=== PATIENT | male | born 1935 | race Caucasian/White ===

== ENCOUNTER 2018-12-15 18:37 | Inpatient (IN) | payer OTHER ==
--- NOTE | 2018-12-15 18:47 | EDPHY ---
H & P Time Seen by Provider: 12/15/18 18:43 HPI/ROS: HPI Stroke alert. 83-year-old male by ambulance, stroke alert, he is with his daughter. Has a prior history of a CVA when he was 67. Residual right upper extremity weakness from this. At approximately 3:30 p.m. His daughter when out to the movies. She came back at approximately 6:00 p.m. And found him slumped to his right side on the couch for usually sets and not responding to verbal stimulus. His eyes were open but he was not responding to questions. His daughter tells me that this is unusual. His daughter also noticed that his right face seemed to be drooping more than usual. He currently is on Coumadin. I can't get any other history from this patient because he is not responsive to questioning. IV was established by EMS. ROS: Unable to obtain. Past medical history: CVA as above. Social history: Lives at home in the [place] [facility] with daughter and son-in-law. Daughter is present. Nonsmoker. He is ambulatory normally. Physical Exam: General Appearance: Alert, eyes open. Patient not responding to verbal command. This patient appears well-hydrated and well-nourished. Eyes: Pupils equal and round no pallor or injection. No lid edema, erythema or injection. ENT, Mouth: Mucous membranes are moist. The pharyngeal tissues are unremarkable. No edema or swelling. No asymmetry suggestive of abscess. No erythema or exudates. Respiratory: There are no retractions, lungs are clear to auscultation with good air movement bilaterally. Cardiovascular: Regular rate and rhythm. No murmur. Gastrointestinal: Abdomen is soft and nontender, no masses, bowel sounds normal. No focal tenderness at McBurney's point. No Sanchez sign. Neurological: Alert. Motor function and sensory function appear intact in the bilateral lower extremities in the left upper extremities. I do not appreciate a facial droop. The patient does not respond to verbal commands. He does stare at you and he tracks. He will not nod yes or no to your questions. Skin: Warm and dry, no rashes. Musculoskeletal: Neck is supple and nontender. Extremities are symmetrical. All joints range without pain or impingement. Psychiatric: No agitation. No depression. Database: EKG: EKG time is 7:13 p.m.; EKG shows a narrow complex atrial fibrillation with ventricular rate average of 116. The QRS, QT intervals are within normal limits. There are no ST-T wave changes indicative of ischemic or injury pattern. No evidence of right heart strain. Interpreted by me. Imaging: CT head without contrast: Large prior infarcts. No blood. Results were discussed with staff radiologist Dr. Juan Cardenas. CT angiogram of head neck: Moderate calcification of the bilateral carotids but nothing acute on CT angiogram of the head and neck. Results were discussed with staff radiologist Dr. Juan Cardenas. Procedures: Emergency department course: Triage vital signs reviewed. After initial assessment in the doorway at 6:35 p.m., the patient was sent for CT imaging. 7:00 p.m. the patient is back in his room. EKG obtained and reviewed by myself. He is in atrial fibrillation with rapid ventricular response in the 120s to 130s. He is hypertensive with a blood pressure currently 189/118. He will be given diltiazem slow push for rate control followed by a steady state drip as needed. 7:15 p.m., I spoke with his daughter and son-in-law. According to the daughter the patient does respond by saying yes or no to verbal questions. He does not do this consistently and will sometimes nod his head yes or no but he will respond. She states that his inability to respond is unusual for him. She confirms right upper extremity deficit from previous CVA at the age of 67. 7:30 p.m., I discussed case with on-call hospitalist Dr. Landon Gonzalez. The case was discussed in detail with her. This patient is not a tPA candidate secondary to him being on Coumadin. [facility] will not be involved at this time. I discussed the results of his imaging with her. I explained that we are currently treating him for atrial fibrillation with rapid ventricular response which is new. We will admit this patient under her care to the step- down unit. 7:40 p.m., after 25 mg of slow push IV diltiazem, ventricular rate is currently in the 80s. Blood pressure is 149/94. The patient appears to still be in atrial fibrillation. EKG will be repeated. He will be started on IV normal saline with 500 cc to be given over the next hour. Diltiazem drip will be at the bedside to be used as needed. I am currently concerned about his blood pressure being lowered much more than it is. This medication will therefore be held for the time being. 8:10 p.m., Cline catheter will be placed. Urinalysis has been ordered. Results of this will be followed up by the hospitalist service. Blood pressure 168/108 at this time. campus monitor shows a narrow complex atrial fibrillation with ventricular rate of 92. I feel he is stable at this time for transfer to the step-down unit. There has been no change in his neurologic status. 8:50 p.m., the patient was re-evaluated, resting comfortably at this time. His mental status has dramatically improved. He is now much more alert. He is responding to questions with yes or no answers and nodding his head. Repeat neurologic exam is otherwise unchanged. The daughter is at the the bedside. The daughter tells me that he is currently at his baseline mental status. campus monitor still shows atrial fibrillation. His rate is starting to creep back up is currently at 100-105. He will be placed on a low-dose diltiazem steady state drip. His blood pressure is also increasing with a blood pressure currently is 178/102. Diltiazem will be titrated to a ventricular rate consistently under 100 and a blood pressure with systolic 150-160. Differential Diagnosis: The differential diagnosis on this patient includes but is not limited to CVA, urinary tract infection, atrial fibrillation new onset with rapid ventricular response. This represents a partial list of diagnoses considered. These considerations are based on history, physical exam, past history, reassessment and diagnostic testing. Constitutional: Initial Vital Signs Temperature (C) 36.5 C 12/15/18 18:37 Heart Rate 118 H 12/15/18 18:37 Respiratory Rate 24 H 12/15/18 18:37 Blood Pressure 179/133 H 12/15/18 18:37 O2 Sat (%) 90 L 12/15/18 18:37 O2 Delivery Mode Oxymizer O2 (L/minute) 2 Allergies/Adverse Reactions: No Known Allergies Allergy (Unverified 12/15/18 19:41) Home Medications: Medication Instructions Recorded Atorvastatin Calcium [Lipitor 40 40 mg PO DAILY 12/15/18 mg (*)] Warfarin Sodium [Coumadin 2.5MG 1.25 mg PO TUTHSA@0800 12/15/18 (*)] Warfarin Sodium [Coumadin 2.5MG 2.5 mg PO SUMOWEFR@0800 12/15/18 (*)] levETIRAcetam [Levetiracetam] 250 mg PO DAILY 12/15/18 levETIRAcetam [Levetiracetam] 500 mg PO HS 12/15/18 Medical Decision Making - Data Points Laboratory Results: Laboratory Results 12/15/18 18:40 12/15/18 18:40 Medications Given: Aspirin (Aspirin) 325 mg PO DAILY DEVAN Stop: 06/14/19 14:14 Last Admin: 12/16/18 14:03 Dose: 325 mg Atorvastatin Calcium (Lipitor) 40 mg PO DAILY DEVAN Stop: 06/14/19 08:59 Last Admin: 12/16/18 14:03 Dose: 40 mg Sodium Chloride (Ns) 1,000 mls @ 150 mls/hr IV CONT DEVAN Stop: 06/13/19 19:44 Last Admin: 12/15/18 22:23 Dose: 1,000 mls Diltiazem/Dextrose (Diltiazem 125mg/125ml (Premix)) 125 mls @ 0 mls/hr IV CONT DEVAN; Per Protocol PRN Reason: Protocol Stop: 06/13/19 22:29 Last Admin: 12/15/18 22:44 Dose: 125 mls Ceftriaxone Sodium/Dextrose (Rocephin 1 Gm (Premix)) 50 mls @ 100 mls/hr IV Q24H DEVAN PRN Reason: Protocol Stop: 01/14/19 22:29 Last Admin: 12/15/18 22:51 Dose: 50 mls Levetiracetam (Keppra) 250 mg PO DAILY DEVAN Stop: 06/14/19 08:59 Last Admin: 12/16/18 14:03 Dose: 250 mg Discontinued Medications Aspirin (Aspirin Rectal) 300 mg ID DAILY DEVAN Stop: 06/14/19 08:59 Last Admin: 12/16/18 15:13 Dose: Not Given Diltiazem HCl (Cardizem 25 Mg/5 Ml Vial) 25 mg IVP EDNOW ONE Stop: 12/15/18 19:23 Last Admin: 12/15/18 19:25 Dose: 25 mg Sodium Chloride (Ns) 500 mls @ 1,000 mls/hr IV EDNOW ONE PRN Reason: Protocol Stop: 12/15/18 20:11 Last Admin: 12/15/18 19:57 Dose: 500 mls Diltiazem/Dextrose (Diltiazem 125mg/125ml (Premix)) 125 mls @ 0 mls/hr IV EDNOW ONE; As Directed PRN Reason: Protocol Stop: 12/15/18 20:48 Last Admin: 12/15/18 20:59 Dose: 125 mls Point of Care Test Results: Chemistry 12/15/18 12/15/18 18:52 18:42 POC Sodium 144 mEq/L mEq/L (135-145) POC Potassium 3.6 mEq/L mEq/L (3.3-5.0) POC Chloride 112 mEq/L H mEq/L (97-110) POC Total CO2 12 mEq/L L mEq/L (22-31) POC BUN 15 mg/dL mg/dL (7-23) POC Creatinine 1.4 mg/dL H mg/dL (0.7-1.3) POC Glucose 133 mg/dL H mg/dL (70-100) POC Troponin I 0.01 ng/mL ng/mL (0.00-0.08) ISTAT H&H 12/15/18 18:42 POC Hgb 16.3 gm/dL gm/dL (13.7-17.5) POC Hct 48 % % (40-51) Departure - Departure Disposition: [facility] Inpatient Acute Clinical Impression: Acute ischemic stroke, Altered mental status, Atrial fibrillation with RVR
[2018-12-15 18:55] LABS: PLATELET COUNT 118 10^3/uL (150-400)
[2018-12-15] MEDS ORDERED: IOPAMIDOL (ISOVUE-370) 150 ML BTL IV ONE (18:55)
[2018-12-15 19:07] LABS: INR 1.74 (0.83-1.16); PROTIME(PATIENT) 19.5 SEC (12.0-15.0)
[2018-12-15] MEDS ORDERED: DILTIAZEM 25 MG/5 ML VIAL IVP ONE ×2 (19:15→19:22)
[2018-12-15] MEDS ORDERED: NS 500 ML IV ONE (19:42)
[2018-12-15] MEDS ORDERED: HYDROmorphONE/DILAUDID 1 MG/ML INJ IVP PRN (19:44)
[2018-12-15] MEDS ORDERED: ACETAMINOPHEN 650 MG SUPP PR PRN (19:44)
[2018-12-15] MEDS ORDERED: ONDANSETRON 4 MG/2 ML VIAL IVP PRN (19:44)
[2018-12-15] MEDS ORDERED: ACETAMINOPHEN 325 MG TAB PO PRN (19:44)
[2018-12-15] MEDS ORDERED: PROMETHAZINE HCL 25 MG/ML INJ IVP PRN (19:44)
[2018-12-15] MEDS ORDERED: ONDANSETRON DISINTEGRATING 4 MG TAB PO PRN (19:44)
[2018-12-15] MEDS ORDERED: NS 1,000 ML IV SCH (19:45)
[2018-12-15] MEDS ORDERED: LIDOCAINE 2% JELLY 20 ML (UROJECT) ONE (20:11)
[2018-12-15] MEDS ORDERED: DILTIAZEM HCL/D5W 125 ML IV ONE (20:47)
--- NOTE | 2018-12-15 21:59 | PDGENHP ---
History and Physical - Chief Complaint unresponsive - History of Present Illness 83 yo M with PMH of CVA with resultant right sided deficits presenting from home with concerns of decreased responsiveness today. Patient resides with his daughter who notes that she last saw him normal this afternoon, she went out for a couple of hours or so and when she returned home he was noted to be on the couch, slumped over and unable to respond to questions. She was able to relay to the ER doctor that he is normally interactive and able to support himself upright on the couch. She also thought that there was a right sided facial droop evident when she saw him. At the time of my evaluation daughter is not available and patient is unable to answer questions or speak at all--he is following commands and grunting on occasion. The majority of this history is therefore obtained by chart review and in discussion with ER doctor. History Information - Allergies/Home Medication List Allergies/Adverse Reactions: No Known Allergies Allergy (Unverified 12/15/18 19:41) Home Medications: Atorvastatin Calcium [Lipitor 40 mg (*)] 40 mg PO DAILY 12/15/18 [Last Taken ] Warfarin Sodium [Coumadin 2.5MG (*)] 1.25 mg PO TUTHSA@0800 12/15/18 [Last Taken 12/14/18] Warfarin Sodium [Coumadin 2.5MG (*)] 2.5 mg PO SUMOWEFR@0800 12/15/18 [Last Taken 12/15/18] levETIRAcetam [Levetiracetam] 250 mg PO DAILY 12/15/18 [Last Taken 12/15/18] levETIRAcetam [Levetiracetam] 500 mg PO HS 12/15/18 [Last Taken 12/14/18] I have personally reviewed and updated: family history, medical history, social history, surgical history - Past Medical History CVA, hyperlipidemia, seizures - Surgical History Additional surgical history: unobtainable - Family History Additional family history: unobtainable - Social History Additional social history: unobtainable due to patients mental status Review of Systems Review of Systems: unobtainable 2/2 patients mental status Physical Exam Physical Exam: Temp Pulse Resp BP Pulse Ox 36.6 C 93 22 H 161/111 H 93 12/15/18 20:36 12/15/18 20:36 12/15/18 20:36 12/15/18 20:36 12/15/18 20:36 O2 (L/minute) 2 Constitutional: not in pain, chronically ill appearing Eyes: PERRL, anicteric sclera Ears, Nose, Mouth, Throat: moist mucous membranes, poor dentition Cardiovascular: irregularly irregular, tachycardia, edema Respiratory: reduced air movement, inspiratory crackles Gastrointestinal: normoactive bowel sounds, soft, non-tender abdomen Genitourinary: no bladder tenderness Skin: warm, normal color Musculoskeletal: no muscle tenderness, No asymmetric calves Neurologic: weakness (right sided upper and lower extremity weakness ), CN II- XII Intact, No AAOx3 Psychiatric: encephalopathic, other (unable to interact verbally, able to follow commands) Lab Data & Imaging Review 12/15/18 18:40 12/15/18 18:40 WBC 7.86 10^3/uL (3.80-9.50) 12/15/18 18:40 RBC 5.17 10^6/uL (4.40-6.38) 12/15/18 18:40 Hgb 16.0 g/dL (13.7-17.5) 12/15/18 18:40 POC Hgb 16.3 gm/dL (13.7-17.5) 12/15/18 18:42 Hct 48.2 % (40.0-51.0) 12/15/18 18:40 POC Hct 48 % (40-51) 12/15/18 18:42 MCV 93.2 fL (81.5-99.8) 12/15/18 18:40 MCH 30.9 pg (27.9-34.1) 12/15/18 18:40 MCHC 33.2 g/dL (32.4-36.7) 12/15/18 18:40 RDW 13.7 % (11.5-15.2) 12/15/18 18:40 Plt Count 118 10^3/uL (150-400) L 12/15/18 18:40 MPV 11.1 fL (8.7-11.7) 12/15/18 18:40 Neut % (Auto) 60.8 % (39.3-74.2) 12/15/18 18:40 Lymph % (Auto) 25.8 % (15.0-45.0) 12/15/18 18:40 [place] % (Auto) 10.1 % (4.5-13.0) 12/15/18 18:40 Eos % (Auto) 2.4 % (0.6-7.6) 12/15/18 18:40 Baso % (Auto) 0.6 % (0.3-1.7) 12/15/18 18:40 Nucleat RBC Rel Count 0.0 % (0.0-0.2) 12/15/18 18:40 Absolute Neuts (auto) 4.78 10^3/uL (1.70-6.50) 12/15/18 18:40 Absolute Lymphs (auto) 2.03 10^3/uL (1.00-3.00) 12/15/18 18:40 Absolute Monos (auto) 0.79 10^3/uL (0.30-0.80) 12/15/18 18:40 Absolute Eos (auto) 0.19 10^3/uL (0.03-0.40) 12/15/18 18:40 Absolute Basos (auto) 0.05 10^3/uL (0.02-0.10) 12/15/18 18:40 Absolute Nucleated RBC 0.00 10^3/uL (0-0.01) 12/15/18 18:40 Immature Gran % 0.3 % (0.0-1.1) 12/15/18 18:40 Immature Gran # 0.02 10^3/uL (0.00-0.10) 12/15/18 18:40 PT 19.5 SEC (12.0-15.0) H 12/15/18 18:40 INR 1.74 (0.83-1.16) H 12/15/18 18:40 POC Sodium 144 mEq/L (135-145) 12/15/18 18:42 Sodium 141 mEq/L (135-145) 12/15/18 18:40 POC Potassium 3.6 mEq/L (3.3-5.0) 12/15/18 18:42 Potassium 3.8 mEq/L (3.5-5.2) 12/15/18 18:40 POC Chloride 112 mEq/L (97-110) H 12/15/18 18:42 Chloride 111 mEq/L (97-110) H 12/15/18 18:40 Carbon Dioxide 11 mEq/l (22-31) L 12/15/18 18:40 POC Total CO2 12 mEq/L (22-31) L 12/15/18 18:42 Anion Gap 19 mEq/L (6-14) H 12/15/18 18:40 POC BUN 15 mg/dL (7-23) 12/15/18 18:42 BUN 15 mg/dL (7-23) 12/15/18 18:40 Creatinine 1.5 mg/dL (0.7-1.3) H 12/15/18 18:40 POC Creatinine 1.4 mg/dL (0.7-1.3) H 12/15/18 18:42 Estimated GFR 45 12/15/18 18:40 Glucose 134 mg/dL (70-100) H 12/15/18 18:40 POC Glucose 133 mg/dL (70-100) H 12/15/18 18:42 Calcium 8.7 mg/dL (8.5-10.4) 12/15/18 18:40 POC Troponin I 0.01 ng/mL (0.00-0.08) 12/15/18 18:52 Urine Color YELLOW 12/15/18 20:30 Urine Appearance CLEAR 12/15/18 20:30 Urine pH 6.0 (5.0-7.5) 12/15/18 20:30 Ur Specific [place] 1.025 (1.002-1.030) 12/15/18 20:30 Urine Protein NEGATIVE (NEGATIVE) 12/15/18 20:30 Urine Ketones NEGATIVE (NEGATIVE) 12/15/18 20:30 Urine Blood 1+ (NEGATIVE) H 12/15/18 20:30 Urine Nitrate NEGATIVE (NEGATIVE) 12/15/18 20:30 Urine Bilirubin NEGATIVE (NEGATIVE) 12/15/18 20:30 Urine Urobilinogen NEGATIVE EU (0.2-1.0) 12/15/18 20:30 Ur Leukocyte Esterase 1+ (NEGATIVE) H 12/15/18 20:30 Urine RBC 3-5 /hpf (0-3) H 12/15/18 20:30 Urine WBC 15-25 /hpf (0-3) H 12/15/18 20:30 Ur Epithelial Cells NONE SEEN /lpf (NONE-1+) 12/15/18 20:30 Urine Bacteria TRACE /hpf (NONE SEEN) H 12/15/18 20:30 Urine Mucus TRACE /lpf (NONE-1+) 12/15/18 20:30 Urine Glucose NEGATIVE (NEGATIVE) 12/15/18 20:30 Visualized and Interpreted imaging results: Yes Interpretation: head CT: nothing acute, old bilateral occipital, bilateral parietal and left sided temporal ischemic areas. head/neck CTA: nothing acute Visualized and Interpreted EKG results: Yes EKG additional interpertation: afib, LAD Assessment & Plan Assessment: Acute ischemic stroke (Acute) Altered mental status (Acute) Atrial fibrillation with RVR (Acute) 83 yo M with hx of CVA and residual right sided weakness presenting with AMS suspicious for recurrent CVA # metabolic encephalopathy: at baseline patient able to interact verbally with an abrupt change in his mental status occurring this afternoon, concerning for acute CVA but unmasking of prior stroke sxs also possible. W/u for infection, treatment of a fib, and w/u of CVA as below. Does have UA possibly c/w infection. # CVA: as above with new significant change in MS concerning for recurrent stroke, old deficits still evident and new deficits of aphasia and ? of right facial droop no longer evident on exam. Jesse nunez has evaluated, patient not candidate for TPA given that he is on warfarin chronically, no significant stenoses on CTA and no bleed on head CT. Neuro to see in am, brain MRI and echo in am. # a fib w/rvr: apparently this is a new dx for him and he was on warfarin previously for CVA rather than a fib, will continue dilt gtt started in ER, will continue warfarin which was subtherapeutic on arrival # pyuria: in the setting of acute change in MS this could represent unmasking of prior cva sxs due to acute infection, cultures pending, ctx started for now # seizure d/o: presumably due to prior CVA but no old records currently available (not found on [employer] or [employer]), will continue keppra, will request records # HTN: allowing for permissive htn as able, on dilt gtt will shoot for sbp 150- 160 # IP status, patient with multiple active high risk conditions requiring SDU level care and monitoring, in addition to time for admission H&P > 35 min critical care time spent in evaluation of imaging/labs and coordination of care with ER doctor and consultants Patient new to my care. Care plan reviewed with ER doctor.
[2018-12-15] MEDS ORDERED: DILTIAZEM HCL/D5W 125 ML IV SCH (22:30)
[2018-12-15] MEDS ORDERED: ENOXAPARIN 80 MG/0.8 ML SYR SC SCH (22:30)
[2018-12-16 05:12] LABS: PLATELET COUNT 105 10^3/uL (150-400)
[2018-12-16 05:16] LABS: INR 1.87 (0.83-1.16); PROTIME(PATIENT) 20.6 SEC (12.0-15.0)
[2018-12-16] MEDS ORDERED: ASPIRIN RECTAL 300 MG SUPP PR SCH (09:00)
--- NOTE | 2018-12-16 10:54 | PDMN ---
Medical Necessity Medical necessity: Pt meets IP criteria as of 12/15/2018 per and MCG MG-N ( Neurology GRG) and M-505 (Afib); est los > 2 mn for ongoing tx and management of acute metabolic encephalopathy with unresponsiveness as well as new onset afib RVR and acute pyuria; requiring diltiazem gtt, IV ABX, cardiac monitoring, further workup, and neurology consultation; Hx CVA, HTN, and seizure disorder
--- NOTE | 2018-12-16 11:09 | ASMTCMCOM ---
CM Note CM Note Notes: Patient admitted w AMS and ?CVA after found him unresponsive. He has a hx of CVA. He lives with his daughter Marisol and her family. 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 Case Management will follow for d/c planning. Date Signed: 12/16/2018 11:09 AM Electronically Signed By:Manju Dennis RN
--- NOTE | 2018-12-16 11:45 | ECHO ---
[email or web address] [address] Main: [phone] Echocardiography Examination Transthoracic Name: CHARLES STAUFFER MR#: [id number] Study Date: 12/16/2018 Study Time: 08:41 AM Date of : 1935 Age: 83 year(s) Height: 182.9 cm (72 in.) Weight: 82.55 kg (182 lb.) BSA: 2.05 m2 Gender: Male Examination: Echo Contrast: Image Quality: Technically Difficult Rhythm: Atrial fibrillation Heart Rate: BP: 120 mmHg/70 mmHg Indication: ?ischemic stroke Procedure Staff Referring Physician: Early Childhood Teacher Assistant: Tati Baker [facility] Reading Physician: Tony Lindsay MD Requesting Provider: Indication: ?ischemic stroke Measurements Chambers AV/MV Label Value Normal Value Label Value Normal Value EF lower range (%) 55 % AV PGmax 6 mmHg EF upper range (%) 60 % AV Vmax 1.24 m/s IVSd, 2D 1.3 cm (0.6cm - 1.1cm) CHAVO (continuity eq. 2.3 cm2 LVDd, 2D 4 cm (4.2cm - 5.9cm) Vmax) LVDs, 2D 2.7 cm (2.1cm - 4cm) MV DT 194 ms LVEF, 2D 62 % (54% - 74%) MV E Vmax 0.87 m/s LVEF, BP 59 % (55% - 70%) TV/PV LVOT PGmax 2 mmHg Label Value Normal Value LVOT Vmax 0.76 m/s (0.7m/s - 1.1m/s) RA Pressure 5 mmHg LVOTd 2.2 cm (1.9cm - 2.1cm) RVSP 31 mmHg LVPWd, 2D 0.9 cm (0.6cm - 1cm) TR Pmax 26 mmHg RVDd, 2D 4.6 cm (1.9cm - 3.8cm) TR Vmax 2.54 m/s TAPSE 2.3 cm PV PGmax 3 mmHg LA Volume, BP 136 ml (18ml - 58ml) PV Vmax, Caliper 0.82 m/s (0.6m/s - 0.9m/s) LADs, 2D 3.4 cm (3cm - 4cm) LAESV index, BP 66.3 ml/m2 RA Area 20.4 cm2 Additional Vessels Label Value Normal Value AoAsc 3.8 cm Patient: CHARLES STAUFFER Study Date: 12/16/2018 Page 1 of 3 08:41 AM AoRoot, 2D 4 cm (1.4cm - 2.6cm) Conclusions Left Ventricle: Left ventricle is normal in size. EF range is estimated at 55 % - 60 %. There is mild concentric left ventricular hypertrophy. Right Ventricle: Dilated right ventricle. Right ventricular systolic function is normal. Left Atrium: The left atrium is severely dilated. Right Atrium: The right atrium is mildly dilated. Tricuspid Valve: Pulmonary artery pressure normal. Aorta: Mild aortic root dilatation. The ascending aorta measures 3.8 cm. The ascending aorta is borderline dilated. Findings Left Ventricle: Left ventricle is normal in size. Normal global systolic left ventricular function. EF evaluated by EF (biplane Mcguire's). The ejection fraction, measured by Simpsons method, is 59 %. EF range is estimated at 55 % - 60 %. There is mild concentric left ventricular hypertrophy. There are no regional wall motion abnormalities. Unable to assess Diastolic Dysfunction due to atrial fibrillation/a flutter. There is a sigmoid shaped septum is present, which is a normal finding in the elderly. . Right Ventricle: Dilated right ventricle. Right ventricular wall thickness is normal. Right ventricular systolic function is normal. Left Atrium: The left atrium is severely dilated. Right Atrium: The right atrium is mildly dilated. Mitral Valve: Normal . Trivial mitral regurgitation. No mitral valve stenosis. There is mild mitral thickening. There is mild mitral annular calcification. Aortic Valve: The aortic valve is structurally normal and trileaflet. No aortic valve regurgitation. There is no aortic stenosis. Tricuspid Valve: Tricuspid valve leaflets are normal in appearance and function. Mild tricuspid regurgitation. No tricuspid valve stenosis. Right Ventricular systolic pressure is measured at 31 mmHg. Pulmonary artery pressure normal. Pulmonic Valve: Pulmonic leaflets exhibit normal cuspal separation. Trivial pulmonic valve regurgitation is present. There is no pulmonic valve stenosis. Aorta: Mild aortic root dilatation. The aortic root size in 2D measures 4.0 cm. The aortic root exhibits mild dilatation. The Patient: CHARLES STAUFFER Study Date: 12/16/2018 Page 2 of 3 08:41 AM ascending aorta measures 3.8 cm. The ascending aorta is borderline dilated. Aorta Measurements AoRoot, 2D is 4.0 cm. IVC: The inferior vena cava is normal in size and course. Pericardium: No pericardial effusion. Exam Details Procedure Ordered: Echo Procedure Status: Routine study Image Quality: Technically Difficult Facility Location: Cardiac Echo 1 (No Signature Object) Patient: CHARLES STAUFFER Study Date: 12/16/2018 Page 3 of 3 08:41 AM [id number]
--- NOTE | 2018-12-16 13:26 | HOSPPROG ---
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 case d/w dr becerra. d/w daughter at bedside Objective: Vital Signs Temp Pulse Resp BP Pulse Ox 36.6 C 65 13 144/77 H 95 12/16/18 04:00 12/16/18 11:52 12/16/18 11:52 12/16/18 11:52 12/16/18 11:52 Laboratory Results 12/16/18 04:56 12/16/18 04:56 12/15/18 12/16/18 12/17/18 05:59 05:59 05:59 Intake Total 1565.7 Output Total 1530 Balance 35.7 PT 20.6 SEC (12.0-15.0) H 12/16/18 04:56 INR 1.87 (0.83-1.16) H 12/16/18 04:56 - Physical Exam Constitutional: no apparent distress, appears nourished Eyes: PERRL, anicteric sclera Ears, Nose, Mouth, Throat: moist mucous membranes, hearing normal Cardiovascular: regular rate and rhythym, no murmur, rub, or gallop Respiratory: no respiratory distress, no rales or rhonchi Gastrointestinal: normoactive bowel sounds, soft, non-tender abdomen Genitourinary: no bladder fullness, No queen in urethra Skin: warm, normal color Musculoskeletal: full muscle strength Neurologic: No AAOx3 Psychiatric: No interacting appropriately ICD10 Worksheet Patient Problems: Problems Problem Status Onset Acute ischemic stroke Acute Altered mental status Acute Atrial fibrillation with RVR Acute
[2018-12-16] MEDS ORDERED: ASPIRIN 325 MG TAB ONE (14:01)
[2018-12-16] MEDS: levETIRAcetam 500 MG TAB PO SCH (14:03)
[2018-12-16] MEDS: ASPIRIN 325 MG TAB PO SCH (14:03)
[2018-12-16] MEDS: ATORVASTATIN CALCIUM 40 MG TAB PO SCH (14:03)
--- NOTE | 2018-12-16 15:03 | GCON ---
[f rep st] CONSULTATION CRITICAL CARE CONSULTATION DATE OF CONSULTATION: 12/16/2018 REASON FOR CONSULTATION: Altered mental status. HISTORY: The patient is a very pleasant 83-year-old gentleman with a history of previous strokes. He was found to have altered mental status and decreased level of consciousness, slumped over in his chair, and unable to respond to questions. She called 911. He was brought to the emergency department. He was unable to speak on arrival, but he was following some simple commands and trying to talk. He had a gaze preference to the right side. A new CVA was suspected. CT scan of the head in the emergency department showed changes consistent with previous infarctions bilaterally in the occipital, parietal, and left temporal areas. This was associated with encephalomalacia. A subsequent MRI showed these old strokes and no evidence of any acute stroke. Cardiac echo has also been done. This showed atrial fibrillation, normal left ventricular ejection fraction, and right ventricular systolic pressures of 31. The patient was admitted to the intensive care unit and supported overnight. Mental status has improved and he appears to be returning close to baseline per his daughter. The patient has been in atrial fibrillation. Apparently, this is chronic. He is on anticoagulation with warfarin. He also comes in on stroke prophylaxis with Keppra. He is Do Not Resuscitate per his and his family's wishes. PAST MEDICAL HISTORY: Somewhat unclear. The daughter does not know details regarding his medical history. He has atrial fibrillation and presumed seizures in the past, obviously CVAs. ALLERGIES: No known drug allergies. SOCIAL HISTORY: Negative tobacco and alcohol. The patient has been here living with his daughter for a year and a half. He is from [place] and was moved out here after his . He is fairly inactive at home, but generally can do some basic ADLs. FAMILY HISTORY: Noncontributory. REVIEW OF SYSTEMS: A 10-point review of systems is negative except as outlined above. PHYSICAL EXAMINATION: GENERAL: Reveals a pleasant gentleman who appears to be in good spirits. He is verbal, but answers very simply with yes or no or gives a thumbs up. VITAL SIGNS: Blood pressure is 144/77, heart rate 65 with atrial fibrillation on the monitor. He is on room air. Saturations are 95%. Respiratory rate is 16. HEENT: Unremarkable for lymphadenopathy or thyromegaly. Pupils are equal. There is no right or left gaze preference currently. There appears to be a slight facial droop on the right. NECK: There is no jugular venous distention. LUNGS: Clear bilaterally with the exception of a few rales at the right base. There are no wheezes or rhonchi. There is no pulmonary congestion. HEART: Irregular. There is a soft systolic murmur, no gallop. ABDOMEN: Soft, nontender. Bowel sounds are present. EXTREMITIES: Remarkable for trace edema. NEUROLOGIC: Remarkable for the fact that he moves all extremities. Right-sided deficits appear to be present versus the left, but this is somewhat difficult to assess as he has problems following some commands. He was able to stand up with a walker. He appears to be oriented to person, place, and time. Responses are appropriate but verbal responses are quite limited. DATABASE/RADIOLOGIC STUDIES: As outlined above. Laboratory: White blood cell count 7200, hematocrit 40.7. Platelets are 105, 000. INR is 1.87. Sodium is 138, potassium 3.9, CO2 of 18 with a BUN of 15, and a creatinine of 1.2. Glucose is 123, calcium 7.7. Troponins are negative. Urinalysis is remarkable for approximately 20 white blood cells seen per field, trace bacteria, and a positive leukocyte esterase. Urine culture is pending. ASSESSMENT: 1. Altered mental status, improving. No evidence of any acute cerebrovascular accident. I wonder if he had an unwitnessed seizure and a resultant Walter paralysis. Keppra level will be checked. 2. History of previous cerebrovascular accidents. Well documented in the past. Current CT and MRI demonstrate no acute event. 3. Presumed history of previous seizure. The patient was on Keppra on admission. I thus presume he had seizures associated with his neurologic events in the past and has been kept on prophylactic Keppra. An unwitnessed seizure thus remains a possibility. 4. Atrial fibrillation. He is in atrial fibrillation here, with adequate rate control currently without medications. He did have a rapid ventricular response on admission. I presume he is on Coumadin secondary to chronic atrial fibrillation. 5. Metabolic: No issues identified. 6. Swallow evaluation: This was done today and he passed. Dietary orders and oral medications will be put in. 7. Urinary tract infection. The patient does have pyuria and bacteriuria. This also could be contributing to his altered mental status on admission? Rocephin will be continued pending cultures. PLAN AND RECOMMENDATIONS: The patient will be kept in the intensive care unit for now. Mental/neurologic status will be followed. Hemodynamics will be followed. Seizure precautions. A Keppra level will be obtained. If subtherapeutic, Keppra will be increased. CBC and electrolytes will be followed. Rocephin will be continued pending urine cultures. Further plans and recommendations will be made based on his progress over the next 12 to 24 hours. /[id number]/MODL MTDD
[2018-12-16] MEDS ORDERED: WARFARIN SODIUM 4 MG TAB PO ONE (16:00)
[2018-12-16] MEDS ORDERED: levETIRAcetam 500 MG TAB PO SCH (21:00)
[2018-12-17 04:39] LABS: INR 2.22 (0.83-1.16); PROTIME(PATIENT) 23.5 SEC (12.0-15.0)
[2018-12-17] MEDS: ASPIRIN 325 MG TAB PO SCH (08:26)
[2018-12-17] MEDS: ATORVASTATIN CALCIUM 40 MG TAB PO SCH (08:26)
[2018-12-17] MEDS: levETIRAcetam 500 MG TAB PO SCH (08:26)
--- NOTE | 2018-12-17 11:07 | GCON ---
[f rep st] CONSULTATION NEUROLOGIC CONSULTATION REFERRING PHYSICIAN: Landon Gonzalez MD HISTORY: The patient is an 83-year-old gentleman who I am asked to see in neurologic consultation re garding aphasia and possible new stroke. THE history is obtained from nurses, as well as the patient 's daughter, and information gathered from the emergency room note and admission history and physical and additional progress notes. I spoke to the patient's daughter yesterday and the patient was at [facility]. I am seeing him for the first time today directly. The patient presented to the emergency department with changes in his neurologic status on the . His daughter had been away after seeing him at his normal baseline yesterday and she was away for fe w hours, and found that he was slumped over and unable to respond to questions. He came to the emerg ency room and there was thought to be right facial droop. He was intermittently following commands a nd making some sounds, but nonverbal. His daughter says that he basically only communicates with yes and no, and sometimes that is accurate and often it is not. He does have a prior history of stroke which occurred almost 20 years ago with residual deficits. The patient is unable to provide any mean ingful history at this point. He started to improve yesterday significantly back toward his baseline , although he was still seemingly more confused on his interactions than normal. History is for prio r stroke, hyperlipidemia, and some seizures. I do not know the details of the seizures, but he is on Keppra. No recent smoking or alcohol related issues. He is on Coumadin apparently for history of a trial fibrillation. He is already on Lipitor. ALLERGIES: No drug allergies. REVIEW OF SYSTEMS: Unable to provide any meaningful review of systems. PHYSICAL EXAM: VITAL SIGNS: Blood pressure 146/85, pulse of 80, respirations 20, temperature 37. G ENERAL: He is lying in the bed in no acute distress. NECK: Supple with no bruits or masses. CARDI AC: Irregular rhythm. No murmur. NEUROLOGIC: He has a severe aphasia and generally noncommunicati ve beyond trying to make some sounds. He will perseverate on some commands I ask him to follow,and noble frazier spontaneously tends to open his mouth when I am trying to ask him to close his eyes or might rand omly lift his arm or leg. He cannot consistently follow any command or communicate effectively. He will look at me and smile and try to make some sounds with nonfluent speech. There is facial asymmet ry with more weakness in the left face than the right it appears, but hard to assess very well. The sounds he does make are rather dysarthric. There is relative right-sided weakness compared to the le ft, but poor discrimination based on his random movements and inability to consistently follow comman ds. The traffic sign supervisor is exerted on both sides, a little weaker on the right than the left. Reflex is a layton le more brisk on the right than the left. He seems to localize to touch in all the extremities. LABS: Unremarkable cell count, and electrolytes are generally unremarkable with a little bit of meta bolic acidosis. LDL cholesterol 50. Urinalysis had 15-25 white cells, trace bacteria. He is curren tly on Rocephin. IMAGING: Brain MRI shows no evidence of acute stroke. There is encephalomalacia from prior infarcti on in the inferior frontal parietal lobe and superior temporal lobe on the left side. Also some infe rior left occipital encephalomalacia and right parietal lobe. Extensive white matter change. No large vessel stenoses. The patient's NIH Stroke Scale is 7, which all seems to be old. IMPRESSION: Today's total unit time was 75 minutes. The patient has old stroke, but no evidence of new stroke. As to whether what occurred represents a postictal phenomenon when he was found with a h istory of seizure or a new relative ischemic event such as TIA is impossible to say for sure. He is apparently fairly close back to his baseline. Alternatively, this could be exacerbation of old defic its in the setting of a mild infection, like urinary tract infection. Otherwise, no evidence of ongo ing or new seizure phenomena or new ischemic change. He is at high risk for recurrent stroke with hi story of atrial fibrillation, and is on appropriate therapy with Coumadin. He is already on statin t herapy. At this point, once he has reached his baseline, it would be appropriate for him to be disch arged back to the appropriate setting where care can be adequately administered, and does not have to have routine neurologic followup unless new questions arise. I do not know if he is currently under the care of a neurologist or not, but if they need new neurologic care, we can certainly help as an outpatient. /[id number]/MODL
[2018-12-17] MEDS ORDERED: POTASSIUM CL 20 MEQ TAB PO ONE (11:15)
[2018-12-17 11:51] VITALS: BP 159/114
--- NOTE | 2018-12-17 13:41 | ASMTCMCOM ---
CM Note CM Note Notes: Pt care discussed in rounds. Spiritual Care notified CM that pt's daughter interested in Palliative support after discharge. Order submit and [place] to meet with pt and daughter today. CM submit order. At this time PT/OT recommending inpt rehab, order in. CM to follow. Plan: Inpt rehab pending acceptance with support from [facility] Date Signed: 12/17/2018 01:40 PM Electronically Signed By:MEHRDAD Vera
--- NOTE | 2018-12-17 13:59 | PDINTPN ---
[facility] Progress Note Assessment/Plan: Assessment: Abnormal mental status: Found poorly responsive with new neurologic deficits. These resolved. This probably represented an unwitnessed seizure with a postictal Walter's paralysis type of a presentation. This is resolved. Previous history of multiple ischemic strokes. No evidence of a new stroke on MRI. Neurology consultation appreciated. Urinary tract infection. E coli is present in the urine with pyuria. He has been on Rocephin. E coli is multiply sensitive. Can go home on amoxicillin. History of atrial fibrillation, anticoagulation. Rate control is acceptable, on no medications for this. INR is therapeutic. Hypokalemia: To get potassium today. Plan: Palliative care consult requested prior to discharge by the patient's daughter. Continue present care for now. Can switch to amoxicillin. See orders. He should be able to go home later today. Discussed with the patient's daughter, nursing, the ICU multi disciplinary team. Subjective: No come complaints. Feels better. Walked in the halls with a walker. Daughter feels he is close to his baseline. Objective: Vital Signs Temp Pulse Resp BP Pulse Ox 36.8 C 92 18 159/114 H 94 12/17/18 07:41 12/17/18 11:47 12/17/18 11:47 12/17/18 11:47 12/17/18 11:47 Microbiology 12/15/18 20:30 Urine Culture - Final Unspecified Escherichia Coli Laboratory Results 12/16/18 04:56 12/17/18 04:10 12/16/18 12/17/18 12/18/18 05:59 05:59 05:59 Intake Total 1565.7 1900 Output Total 1530 Balance 35.7 1900 PT 23.5 SEC (12.0-15.0) H 12/17/18 04:10 INR 2.22 (0.83-1.16) H 12/17/18 04:10 Physical Exam - Physical Exam General Appearance: alert, no apparent distress EENT: other (On room air) Neck: normal inspection (No JVD) Respiratory: lungs clear, normal breath sounds Cardiac/Chest: irregularly irregular (AFib on the monitor, in the 80s.) Abdomen: normal bowel sounds, non-tender, soft Male Genitalia: other (Using urinal) Skin: normal color, warm/dry Extremities: No pedal edema Neuro/Psych: cognition abnormalities (Able to answers simple yes and no questions appropriately. Word-finding issues, chronic), No no motor/sensory deficits (Hold right-sided deficit) ICD10 Worksheet Patient Problems: Problems Problem Status Onset Acute ischemic stroke Acute Altered mental status Acute Atrial fibrillation with RVR Acute
--- NOTE | 2018-12-17 14:21 | ASDISCHSUM ---
Discharge Information Plan Status:Home with Home Health Medically Cleared to Leave:12/17/2018 Discharge Date:12/17/2018 CM D/C Disposition:Home Health Service ADT D/C Disposition: Projected Discharge Date:12/19/2018 11:00 AM Transportation at D/C:Family Discharge Delay Reason: Follow-Up Date:12/19/2018 11:00 AM Discharge Slot: Final Diagnosis: Placement Information Referral Type:Palliative Care Referral ID:[id number] Provider Name:[facility] Address 1:[address] Phone Number: Address 2: Fax Number: [facility]:[place] Selection Factors: State:[place] Patient Contact Information Contact Name:KAREL Relationship:Daughter Address:[address] Work Phone: [facility] Phone: [facility]/Zip Code:[place] [address] Email: Financial Information Financial Class:Medicare Primary Plan Desc:MEDICARE INPATIENT Primary Plan Number:[id number] Secondary Plan Desc:PRATIMA Secondary Plan Number:[id number] Assessment Information LACE LACE Length of stay for Answers: 1 day current admission Acuity / Level of Answers: Yes Care: Did the patient have an inpatient admission? Comorbidities - select Answers: Cerebrovascular disease all that apply (CVA, TIA, aneurysms, vasc ular dementia) Other Notes: HLD; Seizures # of Emergency department Answers: 1-2 visits in the last 6 months Score: 7 Date Signed: 12/17/2018 02:19 PM Electronically Signed By:MEHRDAD Vera [facility] Progress Note CM Note CM Note Notes: Patient admitted w AMS and ?CVA after found him unresponsive. He has a hx of CVA. He lives with his daughter Marisol and her family. PT/OT/INTEGRATION DEVELOPER ordered, as well as a Neurology consult. Case Management will follow for d/c planning. Date Signed: 12/16/2018 11:09 AM Electronically Signed By:Manju Dennis RN [facility] CM Progress Note CM Note CM Note Notes: Pt care discussed in rounds. Spiritual Care notified CM that pt's daughter interested in Palliative support after discharge. Order submit and Kami to meet with pt and daughter today. CM submit order. At this time PT/OT recommending inpt rehab, order in. CM to follow. Plan: Inpt rehab pending acceptance with support from [facility] Date Signed: 12/17/2018 01:40 PM Electronically Signed By:MEHRDAD Vera Case Management Discharge Plan Note Case Management Discharge Discharge Order Complete? Answers: Yes Patient to Obtain Answers: via Family Medications Transportation Arranged Answers: Family/Friends Faxed Final Orders Answers: Yes Agency/Facility Transfer Answers: Yes Report Printed & Faxed to Receiving Agency Family Notified Answers: Yes Discharge Comments Notes: DEMI notified CM pt was being discharged and will stay with his daughter and with 24/7 care and home care. [facility] notified of dc and will meet with them in the community. Family feels they are able to care for pt and feel he will be most comfortable at home. No other CM needs identified. Family to transport. Date Signed: 12/17/2018 02:19 PM Electronically Signed By:MEHRDAD Vera Intervention Information
--- NOTE | 2018-12-17 14:41 | PDDCSUM ---
Discharge Summary Discharge Summary: Dates of service 12/15-12/17/18 Consultations: neurology, critical care medicine Procedures performed Hospital Course by problem: 83 yo M w remote CVA here w newly recognized AF, possible uti and toxic metabolic encephalopathy encephalopathy: likely 2/2 uti or rapid AF much improved and now back to baseline, able to walk, eat and interact UTI: pyuria, and dysuria and presenting with encephalopathy as above that remarkable improved with antibiotics. Cultures with > 100k e coli, CTX initially then transitioned briefly to amoxicillin initially but e coli was resistant to amox so dc on levofloxacin to complete total 10 day course ?new CVA: not seen on MRI and suspect his sxs were more related to unmasking of prior stroke sxs due to UTI AF: not clear that this is new but newly recognized anyway, rate currently controlled off of meds, continued on warfarin proph: anticoagulated code: dnr dispo: living with daughter who feels [facility] f/u with PCP > 35 min spent in dc more than half in coordination of care
--- NOTE | 2018-12-17 14:41 | PDIAF ---
- Diagnosis Code Status: Do Not Resuscitate - Medication Management Discharge Medications: electronically signed and located in the Home Medication List. - Orders Services needed: Home Care, Registered Nurse, Physical Therapy, Occupational Therapy Home Care Face to Face: I certify that this patient was under my care and that I had the required [id number] encounter meeting the encounter requirements on the discharge day. My findings support the fact that the patient is homebound as defined in Home Care Face to Face Continued: CMS Chapter 7 Medicare Benefits Manual 30.1.1 , The condition of the patient is such that there exists a normal inability to leave home and consequently, leaving home would require a considerable and taxing effort. Diet Texture: Regular Texture Diet, Thin Liquids - Follow Up Care Current Providers and Referrals: Patient,NotPresent [Unknown] - As per Instructions
[2018-12-17] MEDS ORDERED: WARFARIN SODIUM 2.5 MG TAB PO ONE (16:00)
== END 2018-12-17 14:49 | disposition home health service (06) | DRG 689 ==
LOC: EDUNIT# → F2N 21:30
PROVIDERS: ADMIT Internal Medicine; ATTEND Internal Medicine
DX: N39.0 Urinary tract infection, site not specified (principal); G92 Toxic encephalopathy; I69.351 Hemiplegia and hemiparesis following cerebral infarction affecting right dominant side; I48.91 Unspecified atrial fibrillation; G40.909 Epilepsy, unspecified, not intractable, without status epilepticus; I10 Essential (primary) hypertension; Z66 Do not resuscitate; Z79.01 Long term (current) use of anticoagulants
CPT/HCPCS: 70551-PN; 80177-90; 82435-PO; 82565-PO; 82947-PO; 84132-PO; 84295-PO; 84484-ER; 84520-PO; 85014-ER; 92610-GN; 96365; 97116-GP; 97162-GP; 97167-GO; 97535-GO; J0696; Q9967